=== PATIENT | female | born 1995 ===

== ENCOUNTER 2024-06-17 13:39 | Emergency (ER) | payer MEDICAID, SELFPAY ==
[2024-06-17 13:52] VITALS: BP 109/68; PULSE 92; RESP 16; TEMP 37.6; O2SAT 99
[2024-06-17 14:50] LABS: Influenza A PCR Negative (Negative); Influenza B PCR Negative (Negative); RSV PCR Negative (Negative)
[2024-06-17 14:55] LABS: COVID-19 PCR Positive (Negative); Source Nasopharynx
[2024-06-17 15:19] LABS: Bilirubin Negative (Negative); Blood Moderate (Negative); Clarity Clear (Clear); Glucose Negative (Negative); Ketones Negative (Negative); Leukocyte Esterase Negative (Negative); Nitrite Negative (Negative); Urobilinogen 0.2 mg/dL (Up to 0.2)
--- NOTE | 2024-06-17 15:21 | ED.GENADUL_ITS ---
Discharge Plan Disposition Patient Disposition: Home Condition: Stable Discharge Details Chief Complaint: GenMedical Clinical Impression: Back pain, COVID, Hypokalemia, Hypomagnesemia Primary Care Provider: None,None ED Provider: Luis Angel Moseley Discharge Instructions Instructions: Hypokalemia, Hypomagnesemia Additional Instructions: You are positive for COVID. Follow CDC guidelines for isolation which can be found on their website If you are not proving within a week follow-up with your primary care provider If you feel more ill or have severe worsening pain or new symptoms such as persistent vomiting return to the emergency department for reevaluation HPI General Mode of arrival: ambulatory . Date/Time Provider Initiated Documentation: 06/17/24 14:03 . Limitations to Documentation: no limitations . Information obtained by: patient . History of Present Illness 28 year old F presents to the emergency department with the chief complaint of body aches and lower back pain, described as moderate, Quality is described as aching, and is localized to the back. Patient reports no radiation. and it has been constant. No relieving factors improve symptom(s), No exacerbating factors reported . Patient notes cough and other (fatigue). Patient did receive the following treatments prior to arrival, none General Stated Complaint: GenMedical BENNETT: 3 Review of Systems All systems reviewed & are unremarkable except as noted in HPI and below Constitutional Constitutional: Denies chills, Reports fatigue and Denies fever(s) Cardiovascular Cardiovascular: Denies chest pain and Denies dyspnea Respiratory Respiratory: Reports cough and Denies dyspnea Gastrointestinal Gastrointestinal: Denies abdominal pain, Denies nausea and Denies vomiting Genitourinary Genitourinary: Denies dysuria Psychiatric Psychiatric: Denies depression Endocrine Endocrine: Reports fatigue Exam Const General: no acute distress Orientation: alert HENMT Head: normal to inspection Ears: external ears normal General nose exam: external nose normal Mouth: moist mucous membranes Eyes General: appearance normal, both eyes and all related structures Neck Neck: normal visual inspection Resp Effort & Inspection: normal respiratory effort and able to speak in complete sentences Auscultation: clear to auscultation bilaterally Cardio Rate: regular rate GI Palpation: soft and nontender Back/Spine/Pelvis Back: no CVA tenderness Thoracic/Lumbar Spine: No thoracic spinal tenderness and No lumbar spinal tenderness Skin General skin exam: no rashes or lesions noted Neuro General: patient alert and patient oriented x3 Extrem General: normal to inspection Psych Mental Status: mental status grossly normal Course Vital Signs Vital signs: Vital Signs Temperature 37.6 C 06/17/24 13:52 Pulse 92 H 06/17/24 13:52 Respiratory Rate 16 06/17/24 13:52 Blood Pressure 109/68 06/17/24 13:52 Pulse Oximetry 99 06/17/24 13:52 Temperature 37.6 C 06/17/24 13:52 Temperature Source Oral 06/17/24 13:52 Pulse 92 H 06/17/24 13:52 Respiratory Rate 16 06/17/24 13:52 Blood Pressure 109/68 06/17/24 13:52 Blood Pressure Position Sitting 06/17/24 13:52 Pulse Oximetry 99 06/17/24 13:52 Oxygen Delivery Method Room Air 06/17/24 13:52 Oxygen Flow Rate 0 06/17/24 13:52 Pain Level 8 06/17/24 13:52 Lab/Test Results Lab/Test Results: Laboratory Tests Range/Units 06/17/24 06/17/24 13:51 15:09 Urine Color (Yellow) Yellow Urine Clarity (Clear) Clear Urine pH (5-8) 7.0 Ur Specific [place] (1.005-1.025) 1.020 Urine Protein (Neg-Trace) mg/dL 30 H Urine Ketones (Negative) mg/dL Negative Urine Blood (Negative) Moderate H Urine Nitrite (Negative) Negative Urine Bilirubin (Negative) Negative Urine Urobilinogen (Up to 0.2) mg/dL 0.2 Ur Leukocyte Esterase (Negative) Negative Urine Glucose (Negative) mg/dL Negative COVID-19 Source Nasopharynx SARS-CoV-2 (PCR) (Negative) Positive A Influenza Type A (PCR) (Negative) Negative Influenza Type B (PCR) (Negative) Negative RSV (PCR) (Negative) Negative POC- Test(urine) Negative Medical Decision Making 28-year-old female who denies any chronic medical problems comes in with 1 day of fatigue, body aches, dry cough. Also reports lower back pain with no known trauma. No high fevers, no abdominal pain or vomiting. She is positive for COVID which is done prior to my exam. She has no rashes, denies IV drug use. Her back pain in the lower back bilaterally in the paraspinous muscles. The paraspinous muscles are soft. There is no midline tenderness. There is no saddle anesthesia. Intact distal sensation and pulses. I suspect her myalgias are from COVID, will treat her symptoms with Toradol and obtain a UA and check CBC and CMP. She is no findings on exam or history to suggest cauda equina or spinal epidural abscess. Given the pain is bilateral in the lower back I doubt kidney stone. Labs show mildly low potassium and magnesium which were repleted orally. UA does have some blood but also is on her period. No signs of infection. She is feeling better after Toradol. Discussed pros and cons of doing a CT to evaluate for kidney stone given low suspicion shared decision making made to defer CT at this time. She will follow-up with her PCP if not improving and return precaut ions given Differential Diagnosis Differential Diagnosis: COVID, flu, UTI, Quality:SDOH Health Related Social Needs: No Data to Display PFSH All Active Problems (Updated 06/17/24 @ 16:33 by Luis Angel Moseley MD) Hypomagnesemia (Acute) Hypokalemia (Acute) COVID (Acute) Back pain (Acute) Social History Smoking/Tobacco Use Status: Never Smoking risk assessment performed?: Yes Alcohol Intake: never Drug use: Daily Substance use type: marijuana Do you feel safe at home: Yes Do you feel safe in your relationship?: Yes
[2024-06-17 15:31] LABS: Epithelial Cells Rare HPF (Negative)
[2024-06-17 15:32] LABS: Bacteria Few HPF (Negative); C & S Indicated? No; Casts Negative LPF (Negative); Crystals Negative HPF (Negative); Mucus Heavy (Negative); Other Cells Negative (Negative)
--- OUTSIDE RECORDS SUMMARY | 2024-06-17 15:41 | XMS_ITS | Continuity of Care Document ---
Author Organization [facility] Address [address] [place] [address] Encounter [facility] [id number] Date(s): 01/24/24 - 01/24/[address] [address]- Encounter Diagnosis Pharyngitis(Discharge Diagnosis) - 01/24/24 Discharge Disposition: Home or Self Care Attending Physician: Rosales Leal Admitting Physician: Rosales Leal Referring Physician: Rosales Leal Allergies, Adverse Reactions, Alerts No Known Medication Allergies Medications amoxicillin 500 mg oral capsule 500 mg = 1 cap, Oral, TID, X 10 days, # 30 cap, 0 Refill(s), 02/03/24 4:01:00 PM CDT, Pharmacy: [id number], 180.34, cm, 01/24/24 16:07:00 EDT, Height, 72.57, kg, 01/24/24 16:10:00 EDT, Weight Dosing Start Date: 01/24/24 Stop Date: 02/03/24 Status: Ordered Results Laboratory List Name Date Strep A PCR 01/24/24 Most recent to oldest [Reference Range]: 1 Strep A PCR [Not Detected] Not Detected (01/24/24 4:07 PM) Vital Signs Most recent to oldest [Reference Range]: 1 Temperature Oral [35.8-37.3 Deg C] 36.7 Deg C (01/24/24 4:07 PM) Peripheral Pulse Rate [60-100 bpm] 93 bp m (01/24/24 4:07 PM) Respiratory Rate [12-24 br/min] 18 br/mi n (01/24/24 4:07 PM) Blood Pressure [90-140/60-90 mmHg] 111/5 9mmHg (01/24/24 4:07 PM) Weight Dosing 72.570 kg (01/24/24 4:07 PM) Body Mass Index 22.31 kg/m2 (01/24/24 4:07 PM) Height 180.34 cm (01/24/24 4:07 PM) Weight 72.57 kg (01/24/24 4:07 PM) Social History Social History Type Response Tobacco Never tobacco user T obacco Use:. Sex Female Hospital Discharge Instructions Patient Education 01/24/2024 16:00:06 Pharyngitis Pharyngitis Pharyngitis is inflammation of the throat (pharynx). It is a very common cause of sore throat. Pharyngitis can be caused by a bacteria, but it is usually caused by a virus. Most cases of pharyngitis get better on their own without treatment. What are the causes? This condition may be caused by: ??? Infection by viruses (viral). Viral pharyngitis spreads easily from person to person (is contagious) through coughing, sneezing, and sharing of personal items or utensils such as cups, forks, spoons, and toothbrushes. ??? Infection by bacteria (bacterial). Bacterial pharyngitis may be spread by touching the nose or face after coming in contact with the bacteria, or through close contact, such as kissing. ??? Allergies. Allergies can cause buildup of mucus in the throat (post-nasal drip), leading to inflammation and irritation. Allergies can also cause blocked nasal passages, forcing breathing throughthe mouth, which dries and irritates the throat. What increases the risk? You are more likely to develop this condition if: ??? You are 5???24 years old. ??? You are exposed to crowded environments such as daycare, school, or dormitory living. ??? You live in a cold climate. ??? You have a weakened disease-fighting (immune) system. What are the signs or symptoms? Symptoms of this condition vary by the cause. Common symptoms of this condition include: ??? Sore throat. ??? Fatigue. ??? Low-grade fever. ??? Stuffy nose (nasal congestion) and cough. ??? Headache. Other symptoms may include: ??? Glands in the neck (lymph nodes) that are swollen. ??? Skin rashes. ??? Plaque-like film on the throat or tonsils. This is often a symptom of bacterial pharyngitis. ??? Vomiting. ??? Red, itchy eyes (conjunctivitis). ??? Loss of appetite. ??? Joint pain and muscle aches. ??? Enlarged tonsils. How is this diagnosed? This condition may be diagnosed based on your medical history and a physical exam. Your health careprovider will ask you questions about your illness and your symptoms. A swab of your throat may be done to check for bacteria (rapid strep test). Other lab tests may also be done, depending on the suspected cause, but these are rare. How is this treated? Many times, treatment is not needed for this condition. Pharyngitis usually gets better in 3???4 days without treatment. Bacterial pharyngitis may be treated with antibiotic medicines. Follow these instructions at home: Medicines ??? Take ajpo-nus-blhemcu and prescription medicines only as told by your health care provider. ??? If you were prescribed an antibiotic medicine, take it as told by your health care provider. Donot stop taking the antibiotic even if you start to feel better. ??? Use throat sprays to soothe your throat as told by your health care provider. ??? Children can get pharyngitis. Do not give your child aspirin because of the association with Isidra's syndrome. Managing pain To help with pain, try: ??? Sipping warm liquids, such as broth, herbal tea, or warm water. ??? Eating or drinking cold or frozen liquids, such as frozen ice pops. ??? Gargling with a mixture of salt and water 3???4 times a day or as needed. To make salt water, completely dissolve ?1 tsp (3???6 g) of salt in 1 cup (237 mL) of warm water. ??? Sucking on hard candy or throat lozenges. ??? Putting a cool-mist humidifier in your bedroom at night to moisten the air. ??? Sitting in the bathroom with the door closed for 5???10 minutes while you run hot water in the shower. General instructions ??? Do not use any products that contain nicotine or tobacco. These products include cigarettes, chewing tobacco, and vaping devices, such as e-cigarettes. If you need help quitting, ask your health care provider. ??? Rest as told by your health care provider. ??? Drink enough fluid to keep your urine pale yellow. How is this prevented? To help prevent becoming infected or spreading infection: ??? Wash your hands often with soap and water for at least 20 seconds. If soap and water are not available, use hand legal referee. ??? Do not touch your eyes, nose, or mouth with unwashed hands, and wash hands after touching theseareas. ??? Do not share cups or eating utensils. ??? Avoid close contact with people who are sick. Contact a health care provider if: ??? You have large, tender lumps in your neck. ??? You have a rash. ??? You cough up green, yellow-brown, or bloody mucus. Get help right away if: ??? Your neck becomes stiff. ??? You drool or are unable to swallow liquids. ??? You cannot drink or take medicines without vomiting. ??? You have severe pain that does not go away, even after you take medicine. ??? You have trouble breathing, and it is not caused by a stuffy nose. ??? You have new pain and swelling in your joints such as the knees, ankles, wrists, or elbows. These symptoms may represent a serious problem that is an emergency. Do not wait to see if the symptoms will go away. Get medical help right away. Call your local emergency services (911 in the [place] Do not drive yourself to the hospital. Summary ??? Pharyngitis is redness, pain, and swelling (inflammation) of the throat (pharynx). ??? While pharyngitis can be caused by a bacteria, the most common causes are viral. ??? Most cases of pharyngitis get better on their own without treatment. ??? Bacterial pharyngitis is treated with antibiotic medicines. This information is not intended to replace advice given to you by your health care provider. Make sure you discuss any questions you have with your health care provider. Document Revised: 08/03/2021 Document Reviewed: 08/03/2021 [employer] Patient Education ?? 2022 [employer]. Follow Up Care 01/24/2024 15:46:08 With:Follow up with Primary Care Address:Unknown When:1 to 2 weeks Physician Emergency department Note * Rosales Leal: PERFORM Event Display: ED Note Physician Authored Date: [id number] DEVONTE WALLER :1995 Age:28 years Sex:Female Visit Date:01/24/2024 Basic Information Time Seen: Rosales Leal / 01/24/2024 16:41 Chief Complaint Patient presents with two days of sore throat with swollwn tonsils with white spots noted History Of Present Illness: Patient is a 28-year-old white female??with a history of frequent strep throat who presents with??complaint of sore throat which has been ongoing for the past 2 days.?? Patient states that she has felt feverish and has had??increased pain with swallowing??to the point where she is having difficultyswallowing secondary to pain.?? Patient??has not had??any definitive??exposure to anyone else with s imilar symptoms??but states that she gets strep several times a year.?? Patient states that today she noted that her??right tonsil was not only swollen but that it had some white exudate??and therefore became concerned that she has a strep throat. Review of Systems: 10 point review of systems is as noted in the HPI. Physical Exam Vitals & Measurements T:??36.7?C ??(Oral)?? HR:??93??(Peripheral)?? RR:??18?? BP:??111/59?? SpO2:??99%?? HT:??180.34??cm?? WT:??72.57??kg?? BMI:??22.31?? Pain Score:??5?? O2 Therapy:??Room air?? In general patient is a young female in no acute distress??complaining of a sore throat??and difficulty swallowing.?? Vital signs are as noted and are all within normal limits. ??Head normocephalic, atraumatic.?? Eyes PERRLA KreaMoint, fundi not visualized. ??TMs clear. ??Nares patent.?? Throat wasslightly erythematous with??enlargement of the right tonsil greater than the left??with questionable slight fullness??and whitish exudates appreciated.?? Neck was supple??with 1+ anterior lymphadenopathy.?? Neurological examination was nonfocal. Medical Decision Making: Patient presented to the emergency department with complaint of a sore throat with??patient being convinced she has strep throat given her prior??issues and although??her??rapid strep is negative??she was??absolutely positive that she??had strep throat and given the slight fullness??on the right with tonsillar hypertrophy is not unreasonable to treat her with??amoxicillin??and??await results of the culture.?? Patient is otherwise take Tylenol or ibuprofen as needed for discomfort.?? Patient is to return if any new or worsening symptoms. Procedure No Qualifying Data Assessment/Plan 1.??Pharyngitis??J02.9 Ordered: amoxicillin 500 mg oral capsule, 500 mg = 1 cap, Oral, TID, X 10 days, # 30 cap, 0 Refill(s), 02/03/24 17:01:00 EDT, Pharmacy: [id number], 180.34, cm, 01/24/24 16:07:00 EDT, Height, 72.57,kg, 01/24/24 16:10:00 EDT, Weight Dosing ?? Patient Education Pharyngitis Follow Up With When Contact Information Follow up with Primary Care Within 1 to 2 weeks Additional Instructions: Medication Reconciliation New Prescription amoxicillin (amoxicillin 500 mg oral capsule)1 Capsules Oral (given by mouth) 3 times a day for 10 Days. Refills: 0. Problem List/Past Medical History Ongoing No qualifying data Historical No qualifying data Strep throat Allergies No Known Medication Allergies Social History Electronic Cigarette/Vaping Electronic Cigarette Use: Never. Tobacco Never tobacco user Tobacco Use:. Diagnostic Results No qualifying data available. Lab Results Infectious Disease?? LATEST RESULTS?? Strep A PCR?? 01/24/24 16:07?? Not Detected? Electronically Signed on 01/24/2024 17:03 EDT Rosales Leal Emergency department Discharge instructions * Rosales Leal: PERFORM Event Display: ED Discharge Information Authored Date: [id number] DEVONTE WALLER :1995 Age:28 years Sex:Female Visit Date:01/24/2024 Discharge Instructions We would like to thank you for allowing us to assist you with your healthcare needs. The following includes patient education materials and information regarding your injury/illness. Diagnosis from Today's Visit Pharyngitis Discharge Vitals Temperature??(Oral) 98.1 ??F (36.7 ??C) Heart Rate??(Peripheral) 93 Respiratory Rate?? 18 Blood Pressure?? 111/59?? SpO2?? 99% Height?? 71.00 in (180.34 cm) Weight?? 160.02 lb (72.57 kg) BMI?? 22.31 Allergies No Known Medication Allergies What to Do Next Instructions from Your Care Team Home to rest.?? Take amoxicillin??500 mg 3 times a day??for the next 10 days.?? [facility]??for routine medical care??and if symptoms do not resolve.?? Return to the emergency department if any new or worsening symptoms??as there is??a slight possibility of a peritonsillar abscess??that may not respond to the antibiotics??and to require other intervention. You Need to Schedule the Following Appointments Follow Up with??Follow up with Primary Care When:??Within 1 to 2 weeks You were treated today on an emergency basis; it may be adams to contact your primary care provider to notify them of your visit today. You may have been referred to your regular doctor or a specialist, please follow up as instructed. If your condition worsens or you can't get in to see the doctor, contact the Emergency Department. Medications What How Much When Why Instructions Next Dose New amoxicillin (amoxicillin 500 mg oral capsule) 1 Capsules Oral (given by mouth) 3 times a day Pharyngitis Duration: 10 Days Pickup at [id number] Pharmacy Information [facility]: [address] [place], [place] [phone] Education Materials Pharyngitis Pharyngitis is inflammation of the throat (pharynx). It is a very common cause of sore throat. Pharyngitis can be caused by a bacteria, but it is usually caused by a virus. Most cases of pharyngitis get better on their own without treatment. What are the causes? This condition may be caused by: ? Infection by viruses (viral). Viral pharyngitis spreads easily from person to person (is contagious) through coughing, sneezing, and sharing of personal items or utensils such as cups, forks, spoons,and toothbrushes. ? Infection by bacteria (bacterial). Bacterial pharyngitis may be spread by touching the nose or faceafter coming in contact with the bacteria, or through close contact, such as kissing. ? Allergies. Allergies can cause buildup of mucus in the throat (post-nasal drip), leading to inflammation and irritation. Allergies can also cause blocked nasal passages, forcing breathing through themouth, which dries and irritates the throat. What increases the risk? You are more likely to develop this condition if: ? You are 5???24 years old. ? You are exposed to crowded environments such as daycare, school, or dormitory living. ? You live in a cold climate. ? You have a weakened disease-fighting (immune) system. What are the signs or symptoms? Symptoms of this condition vary by the cause. Common symptoms of this condition include: ? Sore throat. ? Fatigue. ? Low-grade fever. ? Stuffy nose (nasal congestion) and cough. ? Headache. Other symptoms may include: ? Glands in the neck (lymph nodes) that are swollen. ? Skin rashes. ? Plaque-like film on the throat or tonsils. This is often a symptom of bacterial pharyngitis. ? Vomiting. ? Red, itchy eyes (conjunctivitis). ? Loss of appetite. ? Joint pain and muscle aches. ? Enlarged tonsils. How is this diagnosed? This condition may be diagnosed based on your medical history and a physical exam. Your health careprovider will ask you questions about your illness and your symptoms. A swab of your throat may be done to check for bacteria (rapid strep test). Other lab tests may also be done, depending on the suspected cause, but these are rare. How is this treated? Many times, treatment is not needed for this condition. Pharyngitis usually gets better in 3???4 days without treatment. Bacterial pharyngitis may be treated with antibiotic medicines. Follow these instructions at home: Medicines ? Take nawz-npg-szjgadq and prescription medicines only as told by your health care provider. ? If you were prescribed an antibiotic medicine, take it as told by your health care provider. Do notstop taking the antibiotic even if you start to feel better. ? Use throat sprays to soothe your throat as told by your health care provider. ? Children can get pharyngitis. Do not give your child aspirin because of the association with Isidra'ssyndrome. Managing pain To help with pain, try: ? Sipping warm liquids, such as broth, herbal tea, or warm water. ? Eating or drinking cold or frozen liquids, such as frozen ice pops. ? Gargling with a mixture of salt and water 3???4 times a day or as needed. To make salt water, completely dissolve ?1 tsp (3???6 g) of salt in 1 cup (237 mL) of warm water. ? Sucking on hard candy or throat lozenges. ? Putting a cool-mist humidifier in your bedroom at night to moisten the air. ? Sitting in the bathroom with the door closed for 5???10 minutes while you run hot water in the shower. General instructions ? Do not use any products that contain nicotine or tobacco. These products include cigarettes, chewing tobacco, and vaping devices, such as e-cigarettes. If you need help quitting, ask your health careprovider. ? Rest as told by your health care provider. ? Drink enough fluid to keep your urine pale yellow. How is this prevented? To help prevent becoming infected or spreading infection: ? Wash your hands often with soap and water for at least 20 seconds. If soap and water are not available, use hand legal referee. ? Do not touch your eyes, nose, or mouth with unwashed hands, and wash hands after touching these areas. ? Do not share cups or eating utensils. ? Avoid close contact with people who are sick. Contact a health care provider if: ? You have large, tender lumps in your neck. ? You have a rash. ? You cough up green, yellow-brown, or bloody mucus. Get help right away if: ? Your neck becomes stiff. ? You drool or are unable to swallow liquids. ? You cannot drink or take medicines without vomiting. ? You have severe pain that does not go away, even after you take medicine. ? You have trouble breathing, and it is not caused by a stuffy nose. ? You have new pain and swelling in your joints such as the knees, ankles, wrists, or elbows. These symptoms may represent a serious problem that is an emergency. Do not wait to see if the symptoms will go away. Get medical help right away. Call your local emergency services (911 in the [place] Do not drive yourself to the hospital. Summary ? Pharyngitis is redness, pain, and swelling (inflammation) of the throat (pharynx). ? While pharyngitis can be caused by a bacteria, the most common causes are viral. ? Most cases of pharyngitis get better on their own without treatment. ? Bacterial pharyngitis is treated with antibiotic medicines. This information is not intended to replace advice given to you by your health care provider. Make sure you discuss any questions you have with your health care provider. Document Revised: 08/03/2021 Document Reviewed: 08/03/2021 [employer] Patient Education ?? 2022 [employer] Tests Performed Lab Test Name Test Result Date/Time Strep A PCR Not Detected-Genxprt 01/24/2024 16:07 EDT Patient/Blind Cleaner Signature Patient Name:DEVONTE WALLER I have received this information and my questions have been answered. Patient/Blind Cleaner Name: Patient/Blind Cleaner Signature: Relationship to Patient: Witness Name/Signature: Date: Electronically Signed on 01/24/2024 17:02 EDT Rosales Leal Patient Care team information Care Team Related Persons Name: LIV MONTALVO
--- OUTSIDE RECORDS SUMMARY | 2024-06-17 15:41 | XMS_ITS | Continuity of Care Document ---
Author Organization [facility] Address [address] [place] [id number] Encounter [facility] [id number] Date(s): 03/02/24 - 03/02/24 [place] [id number] Discharge Disposition: Home or Self Care Attending Physician: Terence Hurtado MD Admitting Physician: Terence Hurtado MD Allergies, Adverse Reactions, Alerts No Known Medication Allergies Social History Social History Type Response Tobacco Never tobacco user T obacco Use:. Sex Female Patient Care team information Care Team Related Persons Name: RODNEY WALLER Address: Home [address] [id number] Name: LIV MONTALVO
[2024-06-17 15:44] VITALS: RESP 18
[2024-06-17 15:45] LABS: Abs Immature Grans 0.03 10^3/uL (0.0-0.06); Absolute Basophil Count 0.01 10^3/uL (0.0-0.2); Absolute Eosinophil Count 0.01 10^3/uL (0.0-0.7); Absolute Lymphocyte Count 0.35 10^3/uL (1.2-3.4); Absolute Neutrophil Count 3.74 10^3/uL (1.2-6.7); Basophils % 0.2 %; Eosinophils % 0.2 %; HCT 34.2 % (36.0-46.0); HGB 11.3 g/dL (11.2-15.7); Immature Grans % 0.6 %; Lymphocytes % 7.2 %; MCH 28.9 pg (27.0-33.0); MCV 88 fL (80-95); MPV 11.2 fL (8.0-11.0); Monocytes % 14.5 %; Neutrophils % 77.3 %; Platelet Count 234 10^3/uL (130-400); RBC 3.91 10^6/uL (3.93-5.22); RDW 13.4 % (11.7-14.6); RDW-SD 43.4 fL; WBC 4.84 10^3/uL (4.4-10.8)
[2024-06-17] MEDS: Ketorolac 15 MG/ML VIAL IVP (15:51)
[2024-06-17 15:57] VITALS: BP 101/46; PULSE 95; RESP 16; TEMP 37.9; O2SAT 98
[2024-06-17 16:04] LABS: ALT 15 U/L (14-59); AST 9 U/L (15-37); Albumin 3.8 g/dL (3.4-5.0); Alkaline Phosphatase 33 U/L (46-116); Anion Gap 9.3 mmol/L (3-11); BUN 9 mg/dL (7-18); Bilirubin, Total 0.29 mg/dL (0.2-1.0); CO2 25.7 mmol/L (21.0-32.0); CREATININE 0.9 mg/dL (0.55-1.02); Calcium 8.9 mg/dL (8.5-10.1); Chloride 104 mmol/L (98-107); Estimated GFR 90.42 (mL/min/1.73m2); Glucose 102 mg/dL (74-106); Magnesium 1.6 mg/dL (1.8-2.4); Sodium 139 mmol/L (136-145); Total Protein 7.3 g/dL (6.4-8.2)
[2024-06-17] MEDS: Potassium Chloride 20 MEQ TABCR 40 MEQ PO (17:06)
[2024-06-17] MEDS: Magnesium Oxide 400 MG TAB 800 MG PO (17:06)
== END 2024-06-17 17:07 | disposition home or self-care (01) ==
PROVIDERS: Emergency Provider Emergency Medicine
DX: U07.1 COVID-19 (principal); M54.50 Low back pain, unspecified; E87.6 Hypokalemia; E83.42 Hypomagnesemia
CPT/HCPCS: 36415; 80053; 81025; 87637; 96374; 99284; 81003; 81015; 83735; 85025; J1885

== ENCOUNTER 2024-11-03 00:41 | Outpatient (CLI) | payer SELFPAY ==
[2024-11-03 12:00] LABS: Panorama Kit Sent via Fed Ex
[2024-11-03 12:08] LABS: Abs Immature Grans 0.01 10^3/uL (0.0-0.06); Absolute Basophil Count 0.02 10^3/uL (0.0-0.2); Absolute Eosinophil Count 0.07 10^3/uL (0.0-0.7); Absolute Lymphocyte Count 1.86 10^3/uL (1.2-3.4); Absolute Monocyte Count 0.57 10^3/uL (0.1-0.8); Absolute Neutrophil Count 4.33 10^3/uL (1.2-6.7); Basophils % 0.3 %; HGB 11.6 g/dL (11.2-15.7); Immature Grans % 0.1 %; Lymphocytes % 27.1 %; MCHC 32.2 % (32.0-36.0); MCV 87 fL (80-95); MPV 11.6 fL (8.0-11.0); Monocytes % 8.3 %; Neutrophils % 63.2 %; Platelet Count 271 10^3/uL (130-400); RBC 4.14 10^6/uL (3.93-5.22); RDW 14.1 % (11.7-14.6); WBC 6.86 10^3/uL (4.4-10.8)
[2024-11-03 13:05] LABS: Hemoglobin A1C 5.6 % (<5.7)
[2024-11-03 23:43] LABS: Hepatitis B Surface Ag Negative (Negative)
[2024-11-04 12:05] LABS: Rubella IgG Ab (UVM) Negative (See Note)
[2024-11-04 12:08] LABS: Varicella IgG Antibody Negative (See Note)
[2024-11-04 17:33] LABS: Hepatitis C Ab w Rflx HCV PCR Negative (Negative)
[2024-11-04 17:43] LABS: HIV-1/2 Ag & Ab Screen Negative (Negative)
[2024-11-05 22:49] LABS: Syphilis IgG w/Reflex Nonreactive (Nonreactive)
== END 2024-11-03 00:42 | disposition home or self-care (01) ==
LOC: LBO 00:41
PROVIDERS: Visit Provider Advanced Practice Midwife
DX: Z34.91 Encounter for supervision of normal pregnancy, unspecified, first trimester (principal)
CPT/HCPCS: 36415; 86787; 86803; 86850; 86900; 86901; 87340; 87389; 83036; 85025; 86762; 86780

== ENCOUNTER 2024-11-03 10:27 | Outpatient (REF) | payer MEDICAID, SELFPAY ==
[2024-11-03 13:23] LABS: *AMPHETAMINES SCREEN URINE Negative (Negative); *BARBITURATES SCREEN URINE Negative (Negative); *BENZODIAZEPINES SCREEN URINE Negative (Negative); Cannabinoids THC Positive (Negative); Cocaine Screen,Urine Negative (Negative); METHADONE URINE SCREEN Negative (Negative); OPIATES URINE SCREEN Negative (Negative)
[2024-11-03 13:25] LABS: Tricyclic Antidepressants Negative (Negative)
[2024-11-04 11:37] LABS: Fentanyl Scr w/Rfx Confirm Negative ng/mL (<1)
[2024-11-07 14:11] LABS: Buprenorphine Negative ng/mL (Cutoff: 5.0); Norbuprenorphine Negative ng/mL (Cutoff: 2.5)
== END 2024-11-03 10:28 | disposition home or self-care (01) ==
LOC: LBN 10:27
PROVIDERS: Visit Provider Advanced Practice Midwife
DX: Z34.91 Encounter for supervision of normal pregnancy, unspecified, first trimester (principal)
CPT/HCPCS: 80307; 80348; 87086

== ENCOUNTER 2024-12-10 10:29 | Outpatient (REF) | payer MEDICAID, SELFPAY ==
--- NOTE | 2024-12-10 10:00 | PAPFT_PTH ---
PATIENT: Zaid Carmona LOC: [facility] U#:[id number] AGE/SX: 29/F ROOM: RE12/10/[address]: Cecelia Acosta CNM : 1995 BED: DIS: 12/10/2024 SPEC #: [id number] RECD: 12/10/24 12:49 STATUS: JACKELINE REQ #: [id number] LUZ: 12/10/24 10:[address]: Cecelia Acosta DEPT: [facility] Cytology RECD BY: Deanna Castro ENTERED: 12/10/24 12:49 SP TYPE: PAPFT OTHR DR: None Tissues: 1 - CX/ENDOCX FOR PAP SMEARS Procedures: PAP THIN PREP/[facility] Screening HPV DNA PROBE Comments: [id number] (HPV 16 & 18/45) (CHLAMYDIA/GC)
[2024-12-11 12:12] LABS: Chlamydia Result Negative (Negative); GC Result Negative (Negative)
== END 2024-12-10 10:30 | disposition home or self-care (01) ==
LOC: LBN 10:29
PROVIDERS: Visit Provider Advanced Practice Midwife
DX: Z12.4 Encounter for screening for malignant neoplasm of cervix (principal)
CPT/HCPCS: 87491; 87591; 88142; 87624